=== PATIENT | female | born 1955 | race Caucasian/White ===

== ENCOUNTER 2018-06-01 08:15 | Day surgery (SDC) | payer BC ==
[2018-05-30 09:28] VITALS: BMI 19.5
[2018-06-01] MEDS ORDERED: PROPOFOL 20 ML ONE (09:24)
[2018-06-01] MEDS ORDERED: MIDAZOLAM HCL 2 MG/2 ML SINGLE DOSE VIAL ONE (09:24)
[2018-06-01] MEDS ORDERED: DEXAMETHASONE SOD PHOSPHATE 4 MG/1 ML VIAL ONE (09:27)
[2018-06-01] MEDS ORDERED: ONDANSETRON 4 MG/2 ML VIAL ONE (09:27)
[2018-06-01] MEDS ORDERED: KETOROLAC TROMETHAMINE 30 MG/1 ML VIAL ONE (09:27)
[2018-06-01] MEDS ORDERED: LIDOCAINE HCL/PF 2% SDV 5ML VIAL ONE (09:27)
[2018-06-01] MEDS ORDERED: ceFAZolin SODIUM 1 GM VIAL ONE (09:27)
[2018-06-01] MEDS ORDERED: LIDOCAINE HCL 2% (20ML MULTI-DOSE VIAL) NR ONE (10:07)
[2018-06-01] MEDS ORDERED: ePHEDrine SULFATE 50 MG/1 ML AMPULE ONE (10:21)
[2018-06-01] MEDS ORDERED: BUPIVACAINE HCL/PF 0.25% (2.5MG/ML) 10 ML VIAL IJ ONE (10:24)
[2018-06-01] MEDS ORDERED: BUPIVACAINE HCL/PF 2.5 MG/ML - 30 ML VIAL IJ ONE (10:47)
[2018-06-01] MEDS ORDERED: ONDANSETRON 4 MG/2 ML VIAL IVPUSH PRN (11:44)
[2018-06-01] MEDS ORDERED: oxyCODONE HCL 5 MG TABLET PO PRN ×2 (11:44)
[2018-06-01] MEDS ORDERED: PROMETHAZINE HCL 25 MG/1 ML VIAL IVPUSH PRN (11:44)
[2018-06-01 12:21] VITALS: TEMP 97.7
[2018-06-01 13:03] VITALS: BP 124/72; PULSE 64
--- NOTE | 2018-06-01 15:45 | OP ---
DATE OF OPERATION: 06/01/2018 SURGEON: Hollis Putnam M.D. APPLICATION OPERATIONS ENGINEER: Delores Evans PREOPERATIVE DIAGNOSIS: Right fifth metacarpal comminuted fracture. POSTOPERATIVE DIAGNOSIS: Right fifth metacarpal comminuted fracture. PROCEDURE: Open reduction, internal fixation of fifth metacarpal fracture. FINDINGS: Comminuted fracture with transverse component fifth metacarpal. REPAIR TYPE: Open reduction with 4-5 K-wires placed proximally and distally across the fifth metacarpal into the fourth metacarpal and an inner shaft pin placed across hitting the medial and lateral cortex. DESCRIPTION OF PROCEDURE: Informed consent was obtained. Patient was taken to the operating room, where the right upper extremity was prepped and draped in sterile fashion. Attempt at closure under anesthesia showed it was unstable. Decision to open reduction was made. Right upper extremity prepped and draped in sterile fashion. Tourniquet was placed on the upper arm, inflated to 250 mmHg. Incision was made along dorsum of 5th metacarpal. Tendon was identified and taken radially. The fracture site was identified and noted to have a transverse as well as a butterfly fragment and was found to be unstable. A reduction was performed with a reduction clamp and a pin was placed down the shaft hitting the radial and ulnar cortexes. This was found to have good reduction and with a reduction clamp still in place, alignment of the fingers was noted to be equal comparing to the opposite hand. Pins were then placed through the 5th metacarpal and into the 4th proximally and distally holding it in position. Wound was irrigated with copious amounts of irrigation and closed with 2-0 Vicryl sutures and 4-0 running chromic. Sterile dressing and splint was placed. Patient transferred to recovery without complication. HOLLIS PUTNAM M.D. [id number]
== END 2018-06-01 13:05 | disposition home or self-care (01) ==
LOC: FASU 08:15
PROVIDERS: ATTEND Orthopaedic Surgery
PROC: 0PSP04Z Reposition Right Metacarpal with Internal Fixation Device, Open Approach (ICD-10-PCS; principal; 2018-06-01 10:28)
DX: S62.326A Displaced fracture of shaft of fifth metacarpal bone, right hand, initial encounter for closed fracture (principal); X58.XXXA Exposure to other specified factors, initial encounter; Y93.9 Activity, unspecified; Y92.9 Unspecified place or not applicable
CPT/HCPCS: 73130-TC-RT-FY; 94760